=== PATIENT | female | born 1980 | race Caucasian/White ===

== ENCOUNTER 2018-08-01 09:59 | Outpatient (REF) | payer MEDICAID, SELFPAY ==
[2018-08-01 13:01] LABS: Abs Immature Grans 0.02 k/cumm (0.0-0.09); Absolute Basophil Count 0.03 k/cumm (0.0-0.2); Absolute Eosinophil Count 0.11 k/cumm (0.0-0.7); Absolute Lymphocyte Count 3.27 k/cumm (1.2-3.4); Absolute Neutrophil Count 5.59 k/cumm (1.2-6.7); Basophils % 0.3; Eosinophils % 1.1; HCT 44.9 % (36.0-46.0); HGB 14.6 g/dL (12.0-15.5); Immature Grans % 0.2; Mean Corp. HGB Concentration 32.5 g/dL (32.0-36.0); Mean Corpuscular Hemoglobin 27.7 pg (27.0-33.0); Mean Corpuscular Volume 85.2 fL (80-95); Mean Platelet Volume 9.4 fL (8.0-11.0); Monocytes % 9.1; Neutrophils % 56.3; Platelet Count 278 x1000/uL (130-400); RBC 5.27 m/cumm (4.00-5.20); RBC Distribution Width 13.9 % (11.7-14.6); White Blood Cell Count 9.92 k/cumm (4.4-10.8)
[2018-08-01 13:44] LABS: ALT 39 U/L (12-78); AST 19 U/L (15-37); Albumin 3.9 g/dL (3.4-5.0); Alkaline Phosphatase 94 U/L (46-116); Anion Gap 9.7 mmol/L (3-11); BUN 14 mg/dL (7-18); Bilirubin, Total 0.4 mg/dL (0.2-1.0); CO2 27.3 mmol/L (21.0-32.0); CREATININE 0.79 mg/dL (0.55-1.02); Calcium 8.6 mg/dL (8.5-10.1); Chloride 105 mmol/L (98-107); Cholesterol 237 mg/dL (50-200); Folate 11.6 ng/mL (8.6-20.0); Glucose 83 mg/dL (70-100); HDL Cholesterol 69 mg/dL (40-60); LDL CHOLESTEROL 152 mg/dL (<100); Potassium 3.9 mmol/L (3.5-5.1); Sodium 142 mmol/L (136-145); TSH (W/Ref FT4) 2.33 uIU/mL (0.358-3.74); Total Protein 7.1 g/dL (6.4-8.2); Triglyceride 105 mg/dL (30-150); Vitamin B12 329 pg/mL (193-986)
[2018-08-04 05:17] LABS: Vitamin D 25 Total 21.8 ng/ml (30-100)
== END 2018-08-01 10:19 ==
LOC: NCHCN 09:59
PROVIDERS: PCP Nurse Practitioner Primary Care; Visit Provider Nurse Practitioner Family
DX: F43.10 Post-traumatic stress disorder, unspecified (principal); F40.11 Social phobia, generalized; F10.11 Alcohol abuse, in remission; Z62.810 Personal history of physical and sexual abuse in childhood; Z81.1 Family history of alcohol abuse and dependence
CPT/HCPCS: 80053; 80061; 82306; 83721; 82607; 82746; 84443; 85025

== ENCOUNTER 2019-04-02 14:29 | Emergency (ER) | payer MEDICAID, SELFPAY ==
[2019-04-02 14:39] VITALS: BP 147/101; PULSE 91; RESP 16; TEMP 36.4; O2SAT 99
--- NOTE | 2019-04-02 14:53 | W.ED.GENAD ---
Discharge Plan Disposition Patient Disposition: HOME Condition: Improving Discharge Details Chief Complaint: Nk/Back Pain Clinical Impression: Acute left-sided back pain with sciatica Primary Care Provider: Trei Ramos ED Provider: Cristian Gomes Home Meds and New Rx's Prescriptions: New prednisone 20 mg tablet 60 mg PO DAILY 5 Days Qty: 15 RF: 0 oxycodone-acetaminophen [Percocet] 5-325 mg tablet 1 tab PO Q6H PRN (Reason: pain) Qty: 5 RF: 0 Continued ibuprofen 200 mg Tablet 400 mg PO QID PRNRF: 0 Discharge Instructions Instructions: Back Pain (ED) Additional Instructions: Please follow-up with physical therapy if not improving in 2 to 3 days time Take medications as prescribed. Return if you develop difficulty with urination, increasing pain, weakness or numbness of the lower leg or any other acute concern Stand Alone Forms: Physical Therapy Referral Medical Decision Making 38-year-old female presents with left low back pain that radiates to her buttock. It began with a twisting axial motion this morning. She does not have motor or sensory compromise. She describes a L5 dermatome distribution decreased sensation of the anterior tibia, but objectively is intact. Consistent with acute sciatica. We will treat her with a burst of steroids, Lidoderm patch, small number of analgesics for home. I will refer her to physical therapy. She understands homecare as well as follow-up and return precautions. HPI General Mode of arrival: ambulatory. Date/Time Provider Initiated Documentation: 04/02/19 14:42. Limitations to Documentation: no limitations. Information obtained by: patient. History of Present Illness 38 year old F presents to the emergency department with the chief complaint of Left low back pain radiating to leg, described as moderate and similar to prior episodes, Quality is described as constant, and is localized to the left and lower extremity. Patient distal. Patient started experiencing this hour(s) and it has been constant. Movement worsens symptoms . Patient notes no other symptoms.; denies weakness. Patient did receive the following treatments prior to arrival, NSAID Related Data Home Medications Medication Instructions Recorded Confirmed ibuprofen 400 mg PO QID PRN 04/02/19 04/02/19 oxycodone-acetaminophen [Percocet] 1 tab PO Q6H PRN #5 tab 04/02/19 prednisone 60 mg PO DAILY 5 Days #15 tab 04/02/19 Previous Rx's Medication Instructions Recorded oxycodone-acetaminophen [Percocet] 1 tab PO Q6H PRN #5 tab 04/02/19 prednisone 60 mg PO DAILY 5 Days #15 tab 04/02/19 Allergies Allergy/AdvReac Type Severity Reaction Status Date / Time No Known Allergies Allergy Unverified 04/02/19 14:43 General Stated Complaint: Nk/Back Pain ARTHUR: 3 Review of Systems Review of Systems 6 systems reviewed and otherwise negative [facility] Social History Smoking/Tobacco Use Status: Current every day Alcohol Intake: never Drug use: Daily Substance use type: marijuana Do you feel safe at home: Yes Do you feel safe in your relationship?: Yes Exam Narrative Exam Narrative: GEN: awake, alert, oriented 3. Pleasant, well groomed, interactive. HEAD: Normocephalic, atraumatic ENT: Mucous membranes moist, oropharynx unremarkable, External ear exam unremarkable EYES: PERRL, EOMI NECK: Full ROM, no DESTINY, no menigismus CHEST/RESP: Nontender, clear to auscultation bilateral, no wheeze/rhonchi/rales CARDIOVASCULAR: RRR, no murmur, rub keke. 2+ Rad pulse bilateral Back: Left paraspinous sacroiliac region tenderness, left sciatic notch tenderness. EXT: Full ROM, no edema, no rash. Motor 5 out of 5. Sensation intact throughout including saddle distribution. Great toe proprioception intact Neuro: Grossly normal neurologic exam, conversant, interactive. Psych: Speech fluent, thoughts congruent, affect normal Course Vital Signs Temperature 36.4 C L 04/02/19 14:39 Pulse 91 H 04/02/19 14:39 Respiratory Rate 16 04/02/19 14:39 Blood Pressure 147/101 H 04/02/19 14:39 Pulse Oximetry 99 04/02/19 14:39 Temperature 36.4 C L 04/02/19 14:39 Temperature Source Temporal Artery Scan 04/02/19 14:39 Pulse 91 H 04/02/19 14:39 Respiratory Rate 16 04/02/19 14:39 Respiratory Effort Non-Labored 04/02/19 14:42 Blood Pressure 147/101 H 04/02/19 14:39 Blood Pressure Position Sitting 04/02/19 14:39 Pulse Oximetry 99 04/02/19 14:39 Oxygen Delivery Method Room Air 04/02/19 14:39 Oxygen Flow Rate 0 04/02/19 14:39 Pain Level 7 04/02/19 14:39
--- NOTE | 2019-04-02 14:56 | ED.GENADUL_ITS ---
Discharge Plan Disposition Patient Disposition: HOME Condition: Improving Discharge Details Chief Complaint: Nk/Back Pain Clinical Impression: Acute left-sided back pain with sciatica Primary Care Provider: Teri Ramos ED Provider: Cristian Gomes Home Meds and New Rx's Prescriptions: New prednisone 20 mg tablet 60 mg PO DAILY 5 Days Qty: 15 RF: 0 oxycodone-acetaminophen [Percocet] 5-325 mg tablet 1 tab PO Q6H PRN (Reason: pain) Qty: 5 RF: 0 Continued ibuprofen 200 mg Tablet 400 mg PO QID PRNRF: 0 Discharge Instructions Instructions: Back Pain (ED) Additional Instructions: Please follow-up with physical therapy if not improving in 2 to 3 days time Take medications as prescribed. Return if you develop difficulty with urination, increasing pain, weakness or numbness of the lower leg or any other acute concern Stand Alone Forms: Physical Therapy Referral Medical Decision Making 38-year-old female presents with left low back pain that radiates to her buttock. It began with a twisting axial motion this morning. She does not have motor or sensory compromise. She describes a L5 dermatome distribution decreased sensation of the anterior tibia, but objectively is intact. Consistent with acute sciatica. We will treat her with a burst of steroids, Lidoderm patch, small number of analgesics for home. I will refer her to physical therapy. She understands homecare as well as follow-up and return precautions. HPI General Mode of arrival: ambulatory . Date/Time Provider Initiated Documentation: 04/02/19 14:42 . Limitations to Documentation: no limitations . Information obtained by: patient . History of Present Illness 38 year old F presents to the emergency department with the chief complaint of Left low back pain radiating to leg, described as moderate and similar to prior episodes, Quality is described as constant, and is localized to the left and lower extremity. Patient distal. Patient started experiencing this hour(s) and it has been constant. Movement worsens symptoms . Patient notes no other symptoms.; denies weakness. Patient did receive the following treatments prior to arrival, NSAID Related Data Home Medications Medication Instructions Recorded Confirmed ibuprofen 400 mg PO QID PRN 04/02/19 04/02/19 oxycodone-acetaminophen [Percocet] 1 tab PO Q6H PRN #5 tab 04/02/19 prednisone 60 mg PO DAILY 5 Days #15 tab 04/02/19 Previous Rx's Medication Instructions Recorded oxycodone-acetaminophen [Percocet] 1 tab PO Q6H PRN #5 tab 04/02/19 prednisone 60 mg PO DAILY 5 Days #15 tab 04/02/19 Allergies Allergy/AdvReac Type Severity Reaction Status Date / Time No Known Allergies Allergy Unverified 04/02/19 14:43 General Stated Complaint: Nk/Back Pain ARTHUR: 3 Review of Systems Review of Systems 6 systems reviewed and otherwise negative [facility] Social History Smoking/Tobacco Use Status: Current every day Alcohol Intake: never Drug use: Daily Substance use type: marijuana Do you feel safe at home: Yes Do you feel safe in your relationship?: Yes Exam Narrative Exam Narrative: GEN: awake, alert, oriented 3. Pleasant, well groomed, interactive. HEAD: Normocephalic, atraumatic ENT: Mucous membranes moist, oropharynx unremarkable, External ear exam unremarkable EYES: PERRL, EOMI NECK: Full ROM, no DESTINY, no menigismus CHEST/RESP: Nontender, clear to auscultation bilateral, no wheeze/rhonchi/rales CARDIOVASCULAR: RRR, no murmur, rub keke. 2+ Rad pulse bilateral Back: Left paraspinous sacroiliac region tenderness, left sciatic notch tenderness. EXT: Full ROM, no edema, no rash. Motor 5 out of 5. Sensation intact throughout including saddle distribution. Great toe proprioception intact Neuro: Grossly normal neurologic exam, conversant, interactive. Psych: Speech fluent, thoughts congruent, affect normal Course Vital Signs Temperature 36.4 C L 04/02/19 14:39 Pulse 91 H 04/02/19 14:39 Respiratory Rate 16 04/02/19 14:39 Blood Pressure 147/101 H 04/02/19 14:39 Pulse Oximetry 99 04/02/19 14:39 Temperature 36.4 C L 04/02/19 14:39 Temperature Source Temporal Artery Scan 04/02/19 14:39 Pulse 91 H 04/02/19 14:39 Respiratory Rate 16 04/02/19 14:39 Respiratory Effort Non-Labored 04/02/19 14:42 Blood Pressure 147/101 H 04/02/19 14:39 Blood Pressure Position Sitting 04/02/19 14:39 Pulse Oximetry 99 04/02/19 14:39 Oxygen Delivery Method Room Air 04/02/19 14:39 Oxygen Flow Rate 0 04/02/19 14:39 Pain Level 7 04/02/19 14:39
[2019-04-02] MEDS: Lidocaine 5% Patch 1 PATCH TP (15:09)
== END 2019-04-02 15:08 | disposition home or self-care (01) ==
PROVIDERS: Emergency Provider Emergency Medicine; PCP Nurse Practitioner Family
DX: M54.42 Lumbago with sciatica, left side (principal)
CPT/HCPCS: 99283

== ENCOUNTER 2020-06-19 09:14 | Emergency (ER) | payer MEDICAID, SELFPAY ==
[2020-06-19 09:20] VITALS: BP 131/87; PULSE 85; RESP 20; TEMP 36.2; O2SAT 100
--- NOTE | 2020-06-19 10:01 | W.ED.GENAD ---
Discharge Plan Disposition Patient Disposition: HOME Condition: Stable Discharge Details Clinical Impression: Rash Primary Care Provider: Teri Ramos ED Provider: Thomas Tilley Home Meds and New Rx's Prescriptions: New hydrocortisone 1 % cream 1 applic TP TID PRN (Reason: itching) Qty: 28 RF: 0 Continued ibuprofen 200 mg Tablet 400 mg PO QID PRNRF: 0 sertraline 50 mg tablet 50 mg PO DAILY RF: 0 Discharge Instructions Instructions: Acute Rash (ED) Additional Instructions: Please stop taking terbinafine and sertraline. Use Benadryl for itching. Dose according to label. Use topical steroid cream in the areas that are particularly itchy as prescribed. Do not apply this to your face. Please contact your primary care physician to arrange follow-up. Please contact dermatology at [facility] to arrange follow-up. . Return to the ER for any worsening or new concerning symptoms. Referrals: Teri Ramos [Primary Care Provider] - Jones Isabel MD [ CONSULTING PHYSICIAN] - Discharge Data Discharge Date/Time-TO BE ENTERED AT DEPARTURE: 06/19/20 11:32 Medical Decision Making 39yo F here on terbinafine for rash that was started on 06/01/2020 now with diffuse pustular itchy rash. Consider early generalized exanthematous pustulosis secondary to antifungal. Labs reviewed and no signs of liver disease. Normal glucose. Syphilis pending. Plan to stop terbinafine and sertraline. I will start Benadryl and topical cortisone cream. I will have the patient follow-up with dermatology. HPI General Mode of arrival: ambulatory. Date/Time Provider Initiated Documentation: 06/19/20 09:33. Limitations to Documentation: no limitations. Information obtained by: patient. HPI Narrative: 39yo f with chief complaint of rash. Patient notes diffuse body rash that started 3 days ago and has persisted and worsened. Now severe. No modifiers. She was started on Tribenzor fine for thrush and rash on 06/01. She was also started on sertraline on that day. She has no associated fever. Rash is itchy. Patient notes no other concerning symptoms. Related Data Home Medications Medication Instructions Recorded Confirmed ibuprofen 400 mg PO QID PRN 04/02/19 06/19/20 hydrocortisone 1 applic TP TID PRN #28 gm 06/19/20 sertraline 50 mg PO DAILY 06/19/20 06/19/20 Previous Rx's Medication Instructions Recorded hydrocortisone 1 applic TP TID PRN #28 gm 06/19/20 Allergies Allergy/AdvReac Type Severity Reaction Status Date / Time clindamycin Allergy Skin Rash Unverified 06/19/20 09:27 General Stated Complaint: RashLesion ARTHUR: 4 Review of Systems Constitutional Constitutional: Denies fever(s) Integumentary/Breasts Skin/Breast: Reports as per HPI [facility] Social History Smoking/Tobacco Use Status: Former Tobacco Use Alcohol Intake: former Drug use: Occasionally Substance use type: marijuana Do you feel safe at home: Yes Do you feel safe in your relationship?: Yes Exam Const General: cooperative and no acute distress HENMT Mouth: moist mucous membranes Throat: posterior oropharynx normal Eyes Conjunctivae: normal conjunctivae Sclera: normal sclerae Neck Neck: trachea midline and supple Resp Auscultation: clear to auscultation bilaterally, no rales, no rhonchi and no wheezes Cardio Rate: regular rate and not tachycardic Rhythm: regular rhythm Skin Rashes: rashes noted (Raised, blotchy, red rash with confluent areas exts, back, chest and abb) Neuro General: patient alert, patient awake and tone normal Extrem General: no edema Psych Appearance: grossly normal Mental Status: mental status grossly normal Course Vital Signs Vital signs: Vital Signs Temperature 36.2 C L 06/19/20 09:20 Pulse 85 06/19/20 09:20 Respiratory Rate 20 06/19/20 09:20 Blood Pressure 131/87 06/19/20 09:20 Pulse Oximetry 100 06/19/20 09:20 Temperature 36.2 C L 06/19/20 09:20 Temperature Source Skin 06/19/20 09:20 Pulse 85 06/19/20 09:20 Respiratory Rate 20 06/19/20 09:20 Respiratory Effort Non-Labored 06/19/20 09:24 Blood Pressure 131/87 06/19/20 09:20 Blood Pressure Position Sitting 06/19/20 09:20 Pulse Oximetry 100 06/19/20 09:20 Oxygen Delivery Method Room Air 06/19/20 09:20 Oxygen Flow Rate 0 06/19/20 09:20 Pain Level 5 06/19/20 09:20
[2020-06-19 10:44] LABS: Abs Immature Grans 0.06 10^3/uL (0.0-0.06); Absolute Basophil Count 0.04 10^3/uL (0.0-0.2); Absolute Eosinophil Count 0.25 10^3/uL (0.0-0.7); Absolute Lymphocyte Count 2.91 10^3/uL (1.2-3.4); Absolute Neutrophil Count 6.47 10^3/uL (1.2-6.7); Basophils % 0.4; Eosinophils % 2.4; HCT 48.5 % (36.0-46.0); HGB 15.8 g/dL (11.2-15.7); Immature Grans % 0.6; Lymphocytes % 27.4; MCH 28.3 pg (27.0-33.0); MCHC 32.6 % (32.0-36.0); MCV 86.8 fL (80-95); MPV 9.3 fL (8.0-11.0); Monocytes % 8.5; Neutrophils % 60.7; Nucleated RBC 0 %; Platelet Count 309 10^3/uL (130-400); RBC 5.59 10^6/uL (3.93-5.22); RDW 12.9 % (11.7-14.6); WBC 10.63 10^3/uL (4.4-10.8)
[2020-06-19 11:12] LABS: ALT 49 U/L (14-59); AST 26 U/L (15-37); Albumin 3.5 g/dL (3.4-5.0); Alkaline Phosphatase 101 U/L (46-116); Anion Gap 7.9 mmol/L (3-11); BUN 12 mg/dL (7-18); Bilirubin, Total 0.2 mg/dL (0.2-1.0); CO2 26.1 mmol/L (21.0-32.0); CREATININE 0.79 mg/dL (0.55-1.02); Calcium 9.3 mg/dL (8.5-10.1); Chloride 104 mmol/L (98-107); Glucose 99 mg/dL (74-106); Potassium 3.9 mmol/L (3.5-5.1); Sodium 138 mmol/L (136-145); Total Protein 7.1 g/dL (6.4-8.2)
--- NOTE | 2020-06-19 13:54 | NUR.NOTE ---
copy of referral to care management for a dermatology follow up.Nursing Note:
[2020-06-21 09:28] LABS: Syphilis Serology (RPR) Negative (Negative)
--- NOTE | 2020-07-01 10:56 | PDOC.ERCMPRO ---
- If Service Date Differs Date of service: 06/24/20 Time of Service: 10:56 Care Management Progress Note At the request of ED provider, CM coordinates a referral to Dr. Isabel, chief of anesthesiology, of [facility], to assist patient in obtaining an appointment.
== END 2020-06-19 11:32 | disposition home or self-care (01) ==
PROVIDERS: Emergency Provider Student in an Organized Health Care Education/Training Program; PCP Nurse Practitioner Family
DX: L29.8 Other pruritus (principal); R21 Rash and other nonspecific skin eruption; T36.7X5A Adverse effect of antifungal antibiotics, systemically used, initial encounter
CPT/HCPCS: 36415; 80053; 99283; 85025; 86592

== ENCOUNTER 2021-07-10 02:40 | Outpatient (CLI) | payer MEDICAID, SELFPAY ==
[2021-07-10 11:06] LABS: Source Nasal/Nares
[2021-07-10 20:39] LABS: COVID-19 PCR Negative (Negative)
== END 2021-07-10 02:41 | disposition home or self-care (01) ==
LOC: LBO 02:40
PROVIDERS: PCP Nurse Practitioner Family; Visit Provider Student in an Organized Health Care Education/Training Program
DX: Z20.822 Contact with and (suspected) exposure to COVID-19 (principal); Z01.818 Encounter for other preprocedural examination
CPT/HCPCS: 87635

== ENCOUNTER 2021-07-12 07:45 | Day surgery (SDC) | payer MEDICAID, SELFPAY ==
[2021-07-12 08:03] VITALS: BP 130/89; PULSE 88; RESP 18; TEMP 36.5; O2SAT 97
[2021-07-12] MEDS: Lactated Ringers 1,000 ML 80 ML IV (08:32)
[2021-07-12] MEDS: ceFAZolin 3,000 MG in Normal Saline 100 ML 200 MG IVPB (09:59)
[2021-07-12] MEDS: Sodium Bicarbonate 50 MEQ/50 ML VIAL (10:00)
--- NOTE | 2021-07-12 10:00 | W.PM.DSUDISC ---
Discharge Plan Disposition Patient Disposition: HOME Condition: Good Discharge Details Reason For Visit: Right dorsal wrist ganglion cyst Attending Provider: Shawn Claire Primary Care Provider: Teri Ramos Home Meds and New Rx's Prescriptions: New acetaminophen 500 mg tablet 500 mg PO Q6H PRN (Reason: pain) Qty: 60 RF: 2 ibuprofen 600 mg tablet 600 mg PO TID PRN (Reason: pain) Qty: 60 RF: 0 hydrocodone-acetaminophen 5-325 mg tablet 1 tab PO Q6H PRN (Reason: severe pain) Qty: 4 RF: 0 Continued hydrocortisone 1 % cream 1 applic TP TID PRN (Reason: itching) Qty: 28 RF: 0 Discontinued ibuprofen 200 mg Tablet 400 mg PO QID PRNRF: 0 Discharge Instructions Additional Instructions: Wrist Cyst Removal Discharge Instructions Activity: You should keep the hand/wrist elevated as much as possible for the first few days. You may use the other fingers as tolerated but avoid trying to do too much too soon. You may perform light activities with the hand. Dressing: Your dressing should stay in place for a minimum of 72 hours. After 72 hours you may remove dressing and get incision wet. Pat dry and wear a band-aide if needed. Medications: - You should take Tylenol and Ibuprofen for baseline pain control. - You have been prescribed a stronger pain medication, Hydrocodone, for breakthrough pain. - You may apply ice over the wrist, just double bag so it doesn't get wet. Follow-up: 10-14 days Referrals: Shawn Claire MD [ [facility] STAFF PHYSICIAN] - Activity:: Elevate Remove Dressings/Wound Care:: 72 hours Shower/Bathe:: 72 hours Diet:: As Tolerated Discharge Orders Discharge Orders: Discharge Order (Routine); Ordered 07/12/21 Ordered By: Kirstin Conti DS: Diagnosis Discharge Diagnosis (1) Ganglion cyst of dorsum of right wrist: Status: Acute
[2021-07-12 10:35] VITALS: BP 125/81; PULSE 88; RESP 18; TEMP 36.2; O2SAT 98
--- NOTE | 2021-07-12 13:53 | ROE_ITS ---
Date of service: 07/12/21 Time of Service: 10:23 Operative Note Operative Note DATE OF PROCEDURE: 07/12/21 PRE-OP DIAGNOSIS: Right Dorsal Wrist Ganglion Cyst POST-OP DIAGNOSIS: other (Right Dorsal Wrist Ganglion Cyst of Tendon Sheath) PROCEDURE: Excision of dorsal wrist ganglion cyst of tendon sheath - Right wrist SURGEON: Shawn Claire ANESTHESIA TYPE: Local By Surgeon Refer to Anesthesia Record ESTIMATED BLOOD LOSS: 0 PATHOLOGY: none sent TOURNIQUET TIME: 0 COMPLICATIONS: None Patient was transported to: PACU Patient's condition: stable Indications: Vani is a 40 year old female who I have seen for a dorsal wrist ganglion cyst. It has continued to be bothersome despite some conservative options. Its size and interference with activities continues to cause problems. Therefore, I offered excision of the wrist cyst. I discussed the risks to include bleeding, infection, pain, stiffness, damage to nerve and vessels, recurrence. Despite these risks, she elects to proceed. Procedure Description: Vani was greeted in the preoperative holding area. Identity was confirmed and the correct site was identified and marked. Consent was reviewed the patient and signed. History and physical was updated. The patient to take not to the operating room placed in supine position. All bony prominences were well-padded. A nonsterile tourniquet was placed high up onto the right arm but not used. The arm was prepped with ChloraPrep and draped in a standard fashion. The surgical site was marked on the skin and injected with 1% lidocaine with epinephrine buffered with sodium bicarbonate. The skin was incised sharply. Longitudinal veins were dissected and retracted. The mass was palpable but it still was not quite visible. After incising some of the extensor retinaculum the tendon of the extensor digitorum was encountered and this is where the mass was found. Interestingly, it was intimately involved with the EDC tendon to the middle finger. There is a large portion of this cyst sitting on top of the tendon which was dissected out and then deflated and removed. It was a ganglion cyst with normal ganglion fluid. This large cyst sac was resected from the tendon. There is still 2 smaller cystic structure seen actually within the tendinous fibers. Using the splits within these tendinous fibers the cyst structure was removed. A very small portion of tendon was removed which was very small and frayed. There was a notable indentation into the tendon from where the cyst was sitting. The wound was thoroughly irrigated. I inspected the tendon for any other points of cystic change. There is no involvement of the wrist capsule itself. Excess synovium was removed from the tendon. The wound was then thoroughly irrigated once again. The deep layer was reapproximated with a 3-0 Vicryl. The skin was closed with a running 4-0 M onocryl followed by skin glue, gauze, and Michel wrap. At the end the case all counts were correct. The patient was awakened from anesthesia and taken to the PACU in stable condition. There were no noted complications. Since this did not violate the wrist joint she may use the hand and fingers as tolerated I encouraged some gentle motion. No splint was applied. She may remove these dressings in 2 to 3 days and keep clean and dry and covered with light gauze or Band-Aid.
== END 2021-07-12 10:55 | disposition home or self-care (01) ==
PROVIDERS: PCP Nurse Practitioner Family; Visit Provider Student in an Organized Health Care Education/Training Program
PROC: (CPT 25111; principal; 2021-07-12 10:00)
DX: M67.431 Ganglion, right wrist (principal)
CPT/HCPCS: 25111; J0690